=== PATIENT | female | born 2000 | race Caucasian/White ===

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

== ENCOUNTER 2020-09-26 06:11 | Inpatient (IN) ==
[2020-09-26] MEDS ORDERED: D5 1/2 NS 1000 ML 1,000 ML IV ONE (06:33)
[2020-09-26] MEDS ORDERED: BETADINE SOLN ONE (06:33)
[2020-09-26] MEDS ORDERED: PITOCIN ONE (06:33)
[2020-09-26] MEDS ORDERED: D5LR 1L W PITOCIN 10 UNITS/L 10 UNITS/1,000 ML BAG IV ONE (06:34)
[2020-09-26] MEDS ORDERED: D5 1/2 NS 1L W PITOCIN 20 UNITS/L 20 UNITS/1,000 ML BAG IV ONE (06:34)
--- NOTE | 2020-09-26 07:07 | DR.OB ---
OB Quick Note - Assessment/Plan Assessment/Plan: L&D 09/26/20 at 6:50am S-No complaint. O-Afebrile,VSS JYW=169 with good LTV, +accel, no decel. CTX=none CVX=2cm/50%/0/VTX AROM with good LTV. IUPC and FSE placed. A-IUP at 39 0/7 weeks for induction P-Begin pitocin induction Anticipate
[2020-09-26] MEDS ORDERED: D5LR 1L W PITOCIN 10 UNITS/L 10 UNITS/1,000 ML BAG IV PRN (07:26)
[2020-09-26] MEDS ORDERED: PHENERGAN INJ 25 MG IM PRN ×2 (07:26→12:51)
[2020-09-26] MEDS ORDERED: NUBAIN INJ 200 MG VIAL MULTIDOSE IVP PRN (07:26)
[2020-09-26] MEDS ORDERED: REGLAN INJ 10 MG VIAL IVP PRN (07:26)
[2020-09-26] MEDS ORDERED: D5 1/2 NS 1000 ML 1,000 ML IV SCH (07:26)
[2020-09-26] MEDS ORDERED: MORPHINE SULFATE INJ 2 MG INJ IVP PRN (07:26)
[2020-09-26] MEDS ORDERED: PITOCIN IVP ONE (07:26)
[2020-09-26] MEDS ORDERED: STADOL INJ IVP PRN (07:27)
[2020-09-26] MEDS ORDERED: STADOL INJ ONE (08:11)
[2020-09-26] MEDS ORDERED: NAROPIN EPIDURAL 0.2% 100 ML ONE (08:12)
[2020-09-26] MEDS ORDERED: LR 1000 ML IV 1,000 ML IV ONE ×2 (08:12→09:27)
[2020-09-26] MEDS ORDERED: FENTANYL INJ 100 mcg ONE (08:12)
[2020-09-26] MEDS ORDERED: EPHEDRINE SULFATE INJ ONE (09:55)
[2020-09-26] MEDS ORDERED: NS 1000 ML 1,000 ML ONE (12:09)
[2020-09-26] MEDS ORDERED: AMBIEN PO PRN (12:51)
[2020-09-26] MEDS ORDERED: ADACEL or BOOSTRIX TDaP VACCINE IM ONE (12:51)
[2020-09-26] MEDS ORDERED: MILK OF MAGNESIA PO PRN (12:51)
[2020-09-26] MEDS ORDERED: DERMOPLAST PAIN RELIEF SPRAY TOP PRN (12:51)
--- NOTE | 2020-09-26 14:06 | DR.OB ---
OB Quick Note - Assessment/Plan Assessment/Plan: Delivery Note BELT MAKER 12:35pm Patient complete and pushing. Head delivered over intact perineum. No nuchal cord. Nose and mouth bulb suctioned. Body delivered over intact perineum. Cord clamped x 2 and cut. Infant handed to attendant. Cord sent for gases. Pl acenta delivered spontaneously / intact / 3 vessel cord. No CVX / vaginal / perineal tears. Viable male infant, VTX/OA, wt=7'3" and 7/8/9, stable to NBN. Mother stable to RR. CBG=[id number].
[2020-09-26] MEDS: D5 1/2 NS 1000 ML 1,000 ML with PITOCIN 20 UNITS IV SCH ×4 (14:27→22:45)
[2020-09-26] MEDS: MOTRIN TAB 800 MG PO PRN (17:34)
[2020-09-27] MEDS: MOTRIN TAB 800 MG PO PRN ×2 (03:51→22:07)
[2020-09-27] MEDS: D5 1/2 NS 1000 ML 1,000 ML with PITOCIN 20 UNITS IV SCH ×2 (04:16)
[2020-09-27 05:03] LABS: HEMATOCRIT 27.3 % (36.0-47.0); HEMOGLOBIN 9.2 g/dL (12.0-16.0)
[2020-09-27] MEDS: PRENATAL PLUS PO SCH (08:42)
[2020-09-27] MEDS: PROTONIX TAB 40 MG PO SCH (09:00)
[2020-09-28] MEDS ORDERED: DEPO-PROVERA CONTRACEPTIVE INJ IM ONE (07:38)
[2020-09-28] MEDS: PROTONIX TAB 40 MG PO SCH (08:11)
[2020-09-28] MEDS: PRENATAL PLUS PO SCH (08:11)
[2020-09-28 12:07] VITALS: BP 112/62
== END 2020-09-28 14:24 | disposition home or self-care (01) | DRG 807 ==
LOC: LD 06:11 → MED/SURG 14:02
PROVIDERS: ADMIT Specialist; ATTEND Specialist
DX: Z3A.39 39 weeks gestation of pregnancy; Z01.818 Encounter for other preprocedural examination; O99.613 Diseases of the digestive system complicating pregnancy, third trimester; Z37.0 Single live birth